=== PATIENT | female | born 1990 | race African-American/Black ===

== ENCOUNTER 2019-01-03 06:55 | Emergency (ER) | payer OTHER ==
[~2019-01-03] VITALS: Ht 157.5 cm; Wt 116.1 kg
[~2019-01-03 06:55] MED LIST: ACCUNEB SO1.25 MG/1 INH; ADVAIR HFA 230M12 GM INH; ALBUTEROL2.5 MG/31 INH; CELEXA10 MG PO; FLAGYL500 MG PO; IBUPROFEN 800800 MG PO; MACROBID 100 M100 M1 PO; MEDROLDOSEPACK PO; NOHOMEMEDICATIONS; OSELB75 PO; PREDNISONE 20 M20 MG PO; PROAIR HFA8.5 GM INH; PROMETHAZINE V473 ML PO; TESSALON PERLE100 MG PO; VENTOLIN HFA 1818 GM INH; ZPAK PO
[2019-01-03] MEDS ORDERED: CELEXA20 MG PO (09:48)
[2019-01-03] MEDS ORDERED: BREO ELLIPTA 11 EACH INH (09:48)
[2019-01-03 09:56] LABS: ABSOLUTE NEUTROPHILS 14.9 thou/uL (1.4-8.2); BASOPHILS 0.3 % (0.0-2.0); EOSINOPHILS 0.2 % (0.0-3.0); HEMATOCRIT 34.2 % (37.0-47.0); HEMOGLOBIN 10.8 gm/dL (12.0-15.0); LYMPHOCYTES 4.9 % (24.0-44.0); MCHC 31.5 g/dL (28.0-37.0); MCV 79.2 fL (80.0-100.0); PLATELET COUNT 343 thou/uL (150-400); POLYS 91.6 % (36.0-66.0); RBC 4.31 mil/uL (4.20-5.00); RDW 17.2 % (10.5-14.5); WBC 16.3 thou/uL (4.0-11.0)
[2019-01-03 10:06] LABS: CALCIUM 9.3 mg/dL (8.5-10.1); CREATININE 0.9 mg/dL (0.6-1.0); POTASSIUM 3.6 mmol/L (3.5-5.1)
[2019-01-03] MEDS ORDERED: PREDNISONE 20 M20 MG PO (11:42)
[2019-01-03 11:54] VITALS: BP 115/47
== END 2019-01-03 11:55 | disposition home or self-care (01) ==
LOC: ER 06:55
PROVIDERS: Student in an Organized Health Care Education/Training Program
DX: J45.901 Unspecified asthma with (acute) exacerbation (principal); F32.9 Major depressive disorder, single episode, unspecified